=== PATIENT | male | born 1970 | race Caucasian/White ===

== ENCOUNTER 2022-10-09 18:15 | Inpatient (IN) | payer OTHER ==
[2022-10-09 18:59] VITALS: BMI 28.1
[2022-10-09] MEDS ORDERED: NICOTINE 10 MG CARTRIDGE (INHALER) IH PRN (19:17)
[2022-10-09] MEDS ORDERED: guaiFENesin 600 MG TABLET.ER (FP) PO PRN (19:17)
[2022-10-09] MEDS ORDERED: DICYCLOMINE HCL 10 MG CAPSULE PO PRN (19:17)
[2022-10-09] MEDS ORDERED: AMMONIUM LACTATE 12% LOTION 225 GM BOTTLE TP PRN (19:17)
[2022-10-09] MEDS ORDERED: POLYETHYLENE GLYCOL (HEALTHYLAX) 3350 17 GM PACKET PO PRN (19:17)
[2022-10-09] MEDS ORDERED: COLLOIDAL OATMEAL 1 BAR EACH TP PRN (19:17)
[2022-10-09] MEDS ORDERED: BENZONATATE 200 MG CAPSULE PO PRN (19:17)
[2022-10-09] MEDS ORDERED: MAGNESIUM HYDROX 2400MG/30ML ORAL SUSPENSION 30 ML CUP PO PRN (19:17)
[2022-10-09] MEDS ORDERED: MAG HYDROX/AL HYDROX/SIMETH 30 ML UNIT-DOSE CUP PO PRN (19:17)
[2022-10-09] MEDS ORDERED: NALOXONE HCL (KLOXXADO) 8 MG SPRAY NS PRN (19:17)
[2022-10-09] MEDS ORDERED: NALOXONE HCL 0.4 MG/ML VIAL IM PRN (19:17)
[2022-10-09] MEDS ORDERED: LOPERAMIDE HCL 2 MG CAPSULE PO PRN (19:17)
[2022-10-09] MEDS ORDERED: BENZOCAINE/MENTHOL (CHLORASEPTIC ) LOZENGE MM PRN (19:17)
[2022-10-09] MEDS ORDERED: ACETAMINOPHEN 325 MG TABLET (FP) PO PRN (19:17)
[2022-10-09] MEDS ORDERED: ONDANSETRON *ODT* 4 MG TABLET SL PRN (19:17)
[2022-10-09] MEDS ORDERED: BISMUTH SUBSALICYLATE 524 MG/30 ML PO PRN (19:17)
[2022-10-09] MEDS ORDERED: amLODIPine BESYLATE 10 MG TABLET (FP) PO SCH (19:30)
[2022-10-09] MEDS: HYDROCHLOROTHIAZIDE 25 MG TABLET (FP) PO SCH (21:04)
[2022-10-09] MEDS: NICOTINE 21 MG/24 HOURS TOPICAL PATCH TD SCH (21:08)
[2022-10-09] MEDS: THIAMINE HCL 100 MG TABLET (FP) PO SCH (22:13)
[2022-10-09] MEDS: MELATONIN 5 MG TABLETS PO SCH (22:13)
[2022-10-09] MEDS: chlordiazePOXIDE HCL 25 MG CAPSULE PO SCH (22:13)
[2022-10-09] MEDS: METHOCARBAMOL 500 MG TABLET PO PRN (22:13)
[2022-10-10] MEDS: chlordiazePOXIDE HCL 25 MG CAPSULE PO SCH ×4 (05:53→22:08)
[2022-10-10] MEDS: amLODIPine BESYLATE 5 MG TABLET (FP) PO SCH (10:08)
[2022-10-10] MEDS: NICOTINE 21 MG/24 HOURS TOPICAL PATCH TD SCH (10:08)
[2022-10-10] MEDS: HYDROCHLOROTHIAZIDE 25 MG TABLET (FP) PO SCH (10:08)
[2022-10-10] MEDS: PRENATAL VITAMINS W/ FOLIC ACID TABLET (FP) PO SCH (10:08)
[2022-10-10 10:48] LABS: HEMATOCRIT 44.9 % (35.4-49); HEMOGLOBIN 15.3 GM/dL (11.7-16.9); MCH 29.8 pg (25.7-33.7); MCHC 34.2 g/dl (32.0-35.9); MEAN CELL VOLUME 87.2 fl (80-96); MEAN PLT VOLUME 8.1 fl (7.5-11.1); PLATELET COUNT 228 10^3/uL (134-434); RBC 5.15 M/mm3 (4.00-5.60); RDW 14.3 % (11.9-15.9); WHITE BLOOD COUNT 9.4 K/mm3 (4.0-10.0)
[2022-10-10 10:55] LABS: POTASSIUM 4.3 mmol/L (3.5-5.1)
[2022-10-10 11:01] LABS: CALCIUM 9.4 mg/dL (8.5-10.1)
[2022-10-10 11:03] LABS: BLOOD UREA NITROGEN 17.7 mg/dL (7-18)
[2022-10-10 11:07] LABS: BILIRUBIN,TOTAL 0.8 mg/dL (0.2-1); TOT PROT 7.7 g/dl (6.4-8.2)
[2022-10-10] MEDS ORDERED: LACTULOSE 20 GM/30 ML UDC (FOR ORAL USE ONLY) PO PRN (12:14)
[2022-10-10] MEDS: IBUPROFEN 600 MG TABLET (FP) PO PRN (17:34)
[2022-10-10] MEDS: MELATONIN 5 MG TABLETS PO SCH (22:07)
[2022-10-10] MEDS: THIAMINE HCL 100 MG TABLET (FP) PO SCH (22:07)
[2022-10-11] MEDS: chlordiazePOXIDE HCL 25 MG CAPSULE PO SCH ×4 (05:18→22:01)
[2022-10-11] MEDS: PRENATAL VITAMINS W/ FOLIC ACID TABLET (FP) PO SCH (10:12)
[2022-10-11] MEDS: HYDROCHLOROTHIAZIDE 25 MG TABLET (FP) PO SCH (10:13)
[2022-10-11] MEDS: amLODIPine BESYLATE 5 MG TABLET (FP) PO SCH (10:13)
[2022-10-11] MEDS: NICOTINE 21 MG/24 HOURS TOPICAL PATCH TD SCH (10:14)
[2022-10-11] MEDS: IBUPROFEN 600 MG TABLET (FP) PO PRN (17:39)
[2022-10-11] MEDS: LACTULOSE 20 GM/30 ML UDC (FOR ORAL USE ONLY) PO SCH ×2 (18:43→21:56)
[2022-10-11] MEDS: MELATONIN 5 MG TABLETS PO SCH (21:55)
[2022-10-11] MEDS: THIAMINE HCL 100 MG TABLET (FP) PO SCH (21:55)
[2022-10-11] MEDS: METHOCARBAMOL 500 MG TABLET PO PRN (21:58)
[2022-10-12] MEDS: chlordiazePOXIDE HCL 10 MG CAPSULE PO SCH ×4 (05:49→22:00)
[2022-10-12] MEDS: IBUPROFEN 400 MG TABLET (FP) PO PRN ×2 (05:50→22:04)
[2022-10-12] MEDS: HYDROCHLOROTHIAZIDE 25 MG TABLET (FP) PO SCH (10:08)
[2022-10-12] MEDS: PRENATAL VITAMINS W/ FOLIC ACID TABLET (FP) PO SCH (10:08)
[2022-10-12] MEDS: amLODIPine BESYLATE 5 MG TABLET (FP) PO SCH (10:09)
[2022-10-12] MEDS: NICOTINE 21 MG/24 HOURS TOPICAL PATCH TD SCH (10:10)
[2022-10-12] MEDS: LACTULOSE 20 GM/30 ML UDC (FOR ORAL USE ONLY) PO SCH ×4 (10:12→21:59)
[2022-10-12] MEDS: MELATONIN 5 MG TABLETS PO SCH (22:00)
[2022-10-12] MEDS: THIAMINE HCL 100 MG TABLET (FP) PO SCH (22:00)
[2022-10-13] MEDS: chlordiazePOXIDE HCL 10 MG CAPSULE PO SCH ×2 (05:53→17:19)
[2022-10-13] MEDS: PRENATAL VITAMINS W/ FOLIC ACID TABLET (FP) PO SCH (10:35)
[2022-10-13] MEDS: amLODIPine BESYLATE 5 MG TABLET (FP) PO SCH (10:35)
[2022-10-13] MEDS: HYDROCHLOROTHIAZIDE 25 MG TABLET (FP) PO SCH (10:36)
[2022-10-13] MEDS: LACTULOSE 20 GM/30 ML UDC (FOR ORAL USE ONLY) PO SCH ×4 (10:36→21:33)
[2022-10-13] MEDS: IBUPROFEN 600 MG TABLET (FP) PO PRN (10:36)
[2022-10-13] MEDS: NICOTINE 21 MG/24 HOURS TOPICAL PATCH TD SCH (11:14)
[2022-10-13] MEDS: MELATONIN 5 MG TABLETS PO SCH (21:33)
[2022-10-13] MEDS: THIAMINE HCL 100 MG TABLET (FP) PO SCH (21:34)
[2022-10-14] MEDS ORDERED: chlordiazePOXIDE HCL 10 MG CAPSULE PO ONE (05:00)
[2022-10-14] MEDS: IBUPROFEN 600 MG TABLET (FP) PO PRN (05:50)
[2022-10-14 06:28] VITALS: RESP 18
[2022-10-14 10:08] VITALS: BP 152/86; PULSE 89; TEMP 98
[2022-10-14] MEDS: LACTULOSE 20 GM/30 ML UDC (FOR ORAL USE ONLY) PO SCH (10:40)
[2022-10-14] MEDS: amLODIPine BESYLATE 5 MG TABLET (FP) PO SCH (10:40)
[2022-10-14] MEDS: NICOTINE 21 MG/24 HOURS TOPICAL PATCH TD SCH (10:40)
[2022-10-14] MEDS: HYDROCHLOROTHIAZIDE 25 MG TABLET (FP) PO SCH (10:40)
[2022-10-14] MEDS: PRENATAL VITAMINS W/ FOLIC ACID TABLET (FP) PO SCH (10:40)
== END 2022-10-14 09:32 | disposition home or self-care (01) | DRG 775 ==
LOC: YASAS 18:15 → Y3N 20:05
PROVIDERS: ADMIT Allergy & Immunology; ATTEND Surgery
PROC: HZ2ZZZZ Detoxification Services for Substance Abuse Treatment (ICD-10-PCS; principal; 2022-10-09)
DX: F10.230 Alcohol dependence with withdrawal, uncomplicated (principal); F17.210 Nicotine dependence, cigarettes, uncomplicated; F32.A Depression, unspecified; F41.9 Anxiety disorder, unspecified; I10 Essential (primary) hypertension; R79.89 Other specified abnormal findings of blood chemistry; Z59.00 Homelessness unspecified; Z56.0 Unemployment, unspecified; Z88.0 Allergy status to penicillin
CPT/HCPCS: 36415; 80053; 82140; 85027; 86780; C9803-CS; U0003; U0005